=== PATIENT | male | born 1980 | race Caucasian/White ===

== ENCOUNTER 2021-02-19 17:20 | Emergency (ER) | payer SELFPAY ==
[2021-02-19] MEDS ORDERED: NORVASC 5 MG PO ONE (17:45)
[2021-02-19] MEDS ORDERED: Catapres 0.1 MG PO ONE (17:45)
[2021-02-19] MEDS ORDERED: Sodium Chloride 0.9% 1000 ML 1,000 ML IV SCH (17:45)
[2021-02-19] MEDS ORDERED: Sodium Chloride 0.9% 1000 ML 1,000 ML ONE (17:57)
[2021-02-19] MEDS ORDERED: Catapres 0.1 MG ONE (17:57)
[2021-02-19] MEDS ORDERED: NORVASC 5 MG ONE (17:57)
[2021-02-19 18:00] LABS: Absolute Neutrophil Ct (ANC) 5.69 (1.4-6.9); BASOPHIL % 0.5 % (0.0-0.4); Basophil (Absolute #) 0.05 (0-0.4); Eosinophil % 4.2 % (0.00-5.0); Eosinophil (Absolute #) 0.41 (0-0.5); Hemoglobin 15.8 gm/dl (12.5-18.0); Lymphocyte (Absolute #) 2.74 (1.0-4.6); Lymphocytes % 28.2 % (24.0-44.0); Mean Cell Volume 89.1 fl (78-100); Mean Corpuscular Hemoglobin 30.6 pg (26-32); Mean Corpuscular Hgb Concent. 34.3 g/dl (32-36); Mean Platelet Volume 9.2 fl (7.5-11.0); Monocyte (Absolute #) 0.84 (0.0-1.3); Monocytes % 8.6 % (0.0-12.0); Neutrophil % 58.5 % (36.0-66.0); Platelet Count 229 K/mm3 (150-450); Red Blood Count 5.16 M/mm3 (4.1-5.6); Red Cell Distribution Width 13.3 % (11.5-14.0); White Blood Count 9.7 K/mm3 (4.0-10.5)
[2021-02-19 18:08] LABS: ALBUMIN 4.5 g/dL (3.5-5.0); ALKALINE PHOSPHATASE 64 U/L (38-126); ANION GAP 10.4 MEQ/L (5-15); BLOOD UREA NITROGEN 15 mg/dL (9-20); CHLORIDE 103 mmol/L (98-107); Calcium 9.8 mg/dL (8.4-10.2); Carbon Dioxide 30 mmol/L (22-30); Creatinine 1 1.32 mg/dL (0.66-1.25); EST GLOMERULAR FILTRATION RATE > 60.0 ML/MIN; Glucose 105 mg/dL (74-106); Potassium 3.5 mmol/L (3.5-5.1); SGOT/AST 41 U/L (17-59); SGPT/ALT 58 U/L (0-50); SODIUM 140 mmol/L (137-145)
--- NOTE | 2021-02-19 19:15 | ERPHSYRPT ---
- History of Present Illness Time Seen by Provider: 02/19/21 17:30 Source: patient Exam Limitations: no limitations Patient Subjective Stated Complaint: HTN Triage Nursing Assessment: Patient ambulated back to ED and transferred self to bed. Patient A+O X3. Patient's skin pink, warm and dry. Patient complains of HTN. Patient states he went to donate blood yesterday and was denied due to high blood pressure !.) 151/114 2.) 171/107. Patient states he has an occasional headache all the time and has been getting sob easier. Patient currently denies pain or discomfort. Patient told his about high blood pressure and she wanted him to get checked out. Physician History: Patient is a 40-year-old male who went to give blood and was found to have a blood pressure 171/108 and his donation was refused. He does complain of some occasional headaches he is on no meds he denies any chest pain shortness of breath etc. his highest blood pressure recorded at 182/116. Timing/Duration: yesterday Activities at Onset: none Quality: throbbing Nitro Today/Relief: no nitro taken today Aspirin Treatment Today: no aspirin today Associated Symptoms: headaches Prior Chest Pain/Cardiac Workup: no prior cardiac workup Allergies/Adverse Reactions: iodine Allergy (Verified 02/19/21 17:27) shellfish derived Allergy (Verified 02/19/21 17:27) Hx Influenza Vaccination/Date Given: No Hx Pneumococcal Vaccination/Date Given: No Immunizations Up to Date: Yes Travel Risk - International Travel Have you traveled outside of the country in past 3 weeks: No - Coronavirus Screening Are you exhibiting any of the following symptoms?: No Close contact with a COVID-19 positive Pt in past 14-21 Days: No - Vaccine Status Have you recieved a Covid-19 vaccination: No - Review of Systems Constitutional: No Fever, No Chills Eyes: No Symptoms Ears, Nose, & Throat: No Symptoms Respiratory: No Cough, No Dyspnea Cardiac: No Chest Pain, No Edema, No Syncope Abdominal/Gastrointestinal: No Abdominal Pain, No Nausea, No Vomiting, No Diarrhea Genitourinary Symptoms: No Dysuria Musculoskeletal: No Back Pain, No Neck Pain Skin: No Rash Neurological: Headache, No Dizziness, No Focal Weakness, No Sensory Changes Psychological: No Symptoms Endocrine: No Symptoms All Other Systems: Reviewed and Negative - Past Medical History Pertinent Past Medical History: No Neurological History: No Pertinent History ENT History: No Pertinent History Cardiac History: No Pertinent History Respiratory History: No Pertinent History Endocrine Medical History: No Pertinent History Musculoskeletal History: No Pertinent History GI Medical History: No Pertinent History History: No Pertinent History Psycho-Social History: No Pertinent History Male Reproductive Disorders: No Pertinent History - Past Surgical History Past Surgical History: Yes Neuro Surgical History: No Pertinent History Cardiac: No Pertinent History Respiratory: No Pertinent History Gastrointestinal: No Pertinent History Genitourinary: No Pertinent History Musculoskeletal: No Pertinent History Male Surgical History: No Pertinent History - Social History Smoking Status: Never smoker Exposure to second hand smoke: No Drug Use: none Patient Lives Alone: No - Nursing Vital Signs Nursing Vital Signs: Initial Vital Signs Temperature 97.8 F 02/19/21 17:27 Pulse Rate 86 02/19/21 17:27 Respiratory Rate 18 02/19/21 17:27 Blood Pressure 182/116 02/19/21 17:27 O2 Sat by Pulse Oximetry 97 02/19/21 17:27 Pain Scale Pain Intensity 0 - Physical Exam General Appearance: mild distress, alert Eye Exam: PERRL/EOMI, eyes nml inspection Ears, Nose, Throat Exam: normal ENT inspection, moist mucous membranes Neck Exam: normal inspection, non-tender, supple Respiratory Exam: normal breath sounds, lungs clear, No respiratory distress Cardiovascular Exam: regular rate/rhythm, normal heart sounds, No edema Gastrointestinal/Abdomen Exam: soft, No tenderness, No mass Back Exam: normal inspection, No CVA tenderness, No vertebral tenderness Extremity Exam: normal inspection, normal range of motion Neurologic Exam: alert, oriented x 3, cooperative, normal mood/affect, nml cerebellar function, sensation nml, No motor deficits Skin Exam: normal color, warm, dry Lymphatic Exam: No adenopathy SpO2: 96 - Course Nursing assessment & vital signs reviewed: Yes EKG Interpreted by Me: RATE (74), Sinus Rhythm, NORMAL AXIS, NORMAL INTERVALS, NORMAL QRS - Radiology Exams Chest X-ray Interpretation: Interpreted by me, Negative Ordered Tests: Active Orders 24 hr Category Date Time Status EKG-ER Only STAT Care 02/19/21 17:45 Active IV Insertion STAT Care 02/19/21 17:45 Active CHEST 1 VIEW (PORTABLE) Stat Exams 02/19/21 17:46 Taken CBC W DIFF Stat Lab 02/19/21 17:54 Completed CMP Stat Lab 02/19/21 17:54 Completed TROPONIN Q3H Lab 02/19/21 17:54 Completed TROPONIN Q3H Lab 02/19/21 21:00 Ordered TROPONIN Q3H Lab 02/20/21 00:00 Ordered TROPONIN Q3H Lab 02/20/21 03:00 Ordered TROPONIN Q3H Lab 02/20/21 06:00 Ordered UA W/RFX UR CULTURE Stat Lab 02/19/21 17:47 Ordered Medication Summary Generic Name Dose Route Start Last Admin Trade Name Freq PRN Reason Stop Dose Admin Sodium Chloride 1,000 mls @ 50 mls/hr 02/19/21 17:45 02/19/21 18:01 Sodium Chloride 0.9% 1000 Ml IV 03/21/21 17:44 50 mls/hr .Q20H SHONDA Administration Discontinued Medications Generic Name Dose Route Start Last Admin Trade Name Freq PRN Reason Stop Dose Admin Amlodipine Besylate 10 mg 02/19/21 17:45 02/19/21 18:00 Norvasc 5 Mg PO 02/19/21 17:46 10 mg STAT ONE Administration Amlodipine Besylate Confirm 02/19/21 17:57 Norvasc 5 Mg Administered 02/19/21 17:58 Dose 10 mg .ROUTE .STK-MED ONE Clonidine 0.1 mg 02/19/21 17:45 02/19/21 18:00 Catapres 0.1 Mg PO 02/19/21 17:46 0.1 mg STAT ONE Administration Clonidine Confirm 02/19/21 17:57 Catapres 0.1 Mg Administered 02/19/21 17:58 Dose 0.1 mg .ROUTE .STK-MED ONE Lab/Rad Data: Laboratory Result Diagrams 02/19/21 17:54 02/19/21 17:54 Laboratory Results 02/19/21 02/19/21 02/19/21 Range/Units 17:54 17:54 17:54 WBC 9.7 (4.0-10.5) K/mm3 RBC 5.16 (4.1-5.6) M/mm3 Hgb 15.8 (12.5-18.0) gm/dl Hct 46.0 (42-50) % MCV 89.1 (78-100) fl MCH 30.6 (26-32) pg MCHC 34.3 (32-36) g/dl RDW 13.3 (11.5-14.0) % Plt Count 229 (150-450) K/mm3 MPV 9.2 (7.5-11.0) fl Gran % 58.5 (36.0-66.0) % Eos # (Auto) 0.41 (0-0.5) Absolute Lymphs (auto) 2.74 (1.0-4.6) Absolute Monos (auto) 0.84 (0.0-1.3) Lymphocytes % 28.2 (24.0-44.0) % Monocytes % 8.6 (0.0-12.0) % Eosinophils % 4.2 (0.00-5.0) % Basophils % 0.5 (0.0-0.4) % Absolute Granulocytes 5.69 (1.4-6.9) Basophils # 0.05 (0-0.4) Sodium 140 (137-145) mmol/L Potassium 3.5 (3.5-5.1) mmol/L Chloride 103 (98-107) mmol/L Carbon Dioxide 30 (22-30) mmol/L Anion Gap 10.4 (5-15) MEQ/L BUN 15 (9-20) mg/dL Creatinine 1.32 H (0.66-1.25) mg/dL Estimated GFR > 60.0 ML/MIN Glucose 105 (74-106) mg/dL Calcium 9.8 (8.4-10.2) mg/dL Total Bilirubin 0.50 (0.2-1.3) mg/dL AST 41 (17-59) U/L ALT 58 H (0-50) U/L Alkaline Phosphatase 64 (38-126) U/L Troponin I < 0.012 (0.000-0.034) ng/mL Serum Total Protein 8.0 (6.3-8.2) g/dL Albumin 4.5 (3.5-5.0) g/dL - Progress Progress: improved Air Movement: good Blood Culture(s) Obtained: No Antibiotics given: No - Departure Departure Disposition: Home Clinical Impression: Hypertension Condition: Stable Critical Care Time: No Referrals: ETHAN BURT [Primary Care Provider] - Instructions: Controlling Your Blood Pressure Through Lifestyle, High Blood Pressure (DC) Prescriptions: Amlodipine Besylate/Benazepril [Amlodipine-Benazepril 10-20 mg] 1 each PO DAILY 30 Days #30 capsule
[2021-02-19 19:30] VITALS: BP 160/85; PULSE 76; O2SAT 97
--- NOTE | 2021-02-20 08:39 | XRAY ---
Exam: AP portable chest film from 02/19/2021. Comparison: None. Indication: Elevated blood pressure. Findings: The heart size and contour are normal. The twyla and mediastinal structures appear unremarkable. There is average inflation of the lung castaneda. I see no air space infiltrates, vascular congestion, pneumothorax, or pleural effusion. I cannot exclude a tiny calcified granuloma within the peripheral right upper lung field. There is also either a small vessel on end or a second tiny calcified granuloma within the peripheral left lower lung field. Mild lower thoracic vertebral endplate spurring is evident. Impression: 1. No acute cardiopulmonary process is seen.
== END 2021-02-19 19:30 | disposition home or self-care (01) ==
LOC: ED 17:20
DX: I10 Essential (primary) hypertension (principal)
CPT/HCPCS: 36000; 36415; 71045; 80053; 84484; 85025; 93005; 99284; A9270-GY

== ENCOUNTER 2021-08-13 04:39 | Emergency (ER) | payer SELFPAY ==
[2021-08-13] MEDS ORDERED: BABY ASPIRIN 81 MG CHEW PO ONE (05:02)
[2021-08-13 05:18] LABS: Absolute Neutrophil Ct (ANC) 4.37 (1.4-6.9); BASOPHIL % 0.2 % (0.0-0.4); Basophil (Absolute #) 0.02 (0-0.4); Eosinophil (Absolute #) 0.33 (0-0.5); Hemoglobin 14.4 gm/dl (12.5-18.0); Lymphocyte (Absolute #) 2.78 (1.0-4.6); Lymphocytes % 33.7 % (24.0-44.0); Mean Cell Volume 92.1 fl (78-100); Mean Corpuscular Hemoglobin 30.8 pg (26-32); Mean Corpuscular Hgb Concent. 33.5 g/dl (32-36); Mean Platelet Volume 9.2 fl (7.5-11.0); Monocyte (Absolute #) 0.75 (0.0-1.3); Monocytes % 9.1 % (0.0-12.0); Platelet Count 211 K/mm3 (150-450); Red Blood Count 4.67 M/mm3 (4.1-5.6); White Blood Count 8.3 K/mm3 (4.0-10.5)
[2021-08-13 05:39] LABS: ALBUMIN 4.4 g/dL (3.5-5.0); ALKALINE PHOSPHATASE 69 U/L (38-126); ANION GAP 14.7 MEQ/L (5-15); BLOOD UREA NITROGEN 17 mg/dL (9-20); CHLORIDE 105 mmol/L (98-107); Calcium 9.3 mg/dL (8.4-10.2); Carbon Dioxide 24 mmol/L (22-30); Creatinine 1 1.07 mg/dL (0.66-1.25); EST GLOMERULAR FILTRATION RATE > 60.0 ML/MIN; Glucose 103 mg/dL (74-106); NT PRO BNP 16.6 pg/mL (0-450); Potassium 3.6 mmol/L (3.5-5.1); SGOT/AST 43 U/L (17-59); SGPT/ALT 76 U/L (0-50); SODIUM 141 mmol/L (137-145); Total Protein 7.6 g/dL (6.3-8.2)
[2021-08-13 06:14] VITALS: BP 140/94; PULSE 72; O2SAT 95
--- NOTE | 2021-08-13 06:38 | ERPHSYRPT ---
- History of Present Illness Time Seen by Provider: 08/13/21 04:53 Source: patient Exam Limitations: no limitations Patient Subjective Stated Complaint: "I'm waking up and my arm hurts." Triage Nursing Assessment: Reported right arm pain onset 1 week ago. Only occurs when he awakes after sleepingl. Denied sleeping on the right side of his body. D escribed as tingling with "muscular pain" in the elbow and radiating to the shoulder. Denied associated symptoms. reported difficult to control hypertension. 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 Denied pain at this time. Symmetrical chest expansion. Heart tones S1/S2 RRR without extra sounds. Lungs vesicular throughout all castaneda without adventitious sounds. Abdomen non-distended, non-surgical, and without peritoneal signs. Peripheral pulses +3 bilateral. No dependent edema. Physician History: 40 years old male with history of poorly controlled hypertension, hyperlipidemia presented in the ER with chief complaint right forearm/elbow pain for almost 1 week. Patient reports pain in the right upper extremity upon waking up and improves with movements of arm and some tingling sensations at times. No radiation to the chest or chest pain. Denies any difficulty breathing. No weakness in right upper extremity. Denies any fall or trauma. No history of CAD or cardiac work-up done in the past. Timing/Duration: week(s) (1), intermittent, improved Severity: moderate Modifying Factors: Improves With: movement Associated Symptoms: denies symptoms Allergies/Adverse Reactions: iodine Allergy (Verified 08/13/21 04:45) shellfish derived Allergy (Verified 08/13/21 04:45) Home Medications: Amlodipine Besylate/Benazepril [Amlodipine-Benazepril 10-20 mg] 10 mg PO DAILY 08/13/21 [History] Atorvastatin Calcium 10 mg PO DAILY 08/13/21 [History] Losartan Potassium 100 mg PO DAILY 08/13/21 [History] Hx Tetanus, Diphtheria Vaccination/Date Given: No Hx Influenza Vaccination/Date Given: No Hx Pneumococcal Vaccination/Date Given: No Travel Risk - International Travel Have you traveled outside of the country in past 3 weeks: No - Coronavirus Screening Close contact with a COVID-19 positive Pt in past 14-21 Days: No - Vaccine Status Have you recieved a Covid-19 vaccination: No - Review of Systems Constitutional: No Symptoms Eyes: No Symptoms Ears, Nose, & Throat: No Symptoms Respiratory: No Symptoms Cardiac: No Symptoms Abdominal/Gastrointestinal: No Symptoms Genitourinary Symptoms: No Symptoms Musculoskeletal: Myalgias Skin: No Symptoms Psychological: No Symptoms Endocrine: No Symptoms Hematologic/Lymphatic: No Symptoms Immunological/Allergic: No Symptoms - Past Medical History Pertinent Past Medical History: No Neurological History: No Pertinent History ENT History: No Pertinent History Cardiac History: Hypertension Respiratory History: No Pertinent History Endocrine Medical History: No Pertinent History Musculoskeletal History: No Pertinent History GI Medical History: No Pertinent History History: No Pertinent History Psycho-Social History: No Pertinent History Male Reproductive Disorders: No Pertinent History - Past Surgical History Past Surgical History: Yes Neuro Surgical History: No Pertinent History Cardiac: No Pertinent History Respiratory: No Pertinent History Gastrointestinal: No Pertinent History Genitourinary: No Pertinent History Musculoskeletal: Orthopedic Surgery Male Surgical History: No Pertinent History - Social History Smoking Status: Never smoker Exposure to second hand smoke: No Drug Use: none Patient Lives Alone: Yes - Nursing Vital Signs Nursing Vital Signs: Initial Vital Signs Pulse Rate 78 08/13/21 04:40 Respiratory Rate 16 08/13/21 04:40 Blood Pressure 171/108 08/13/21 04:40 O2 Sat by Pulse Oximetry 98 08/13/21 04:40 Pain Scale Pain Intensity 0 - Physical Exam General Appearance: no apparent distress, alert, anxiety Eye Exam: PERRL/EOMI, eyes nml inspection Ears, Nose, Throat Exam: normal ENT inspection, TMs normal, pharynx normal Neck Exam: normal inspection, supple, full range of motion Respiratory Exam: normal breath sounds, lungs clear, No chest tenderness Cardiovascular Exam: regular rate/rhythm, normal heart sounds Gastrointestinal/Abdomen Exam: soft, normal bowel sounds, No tenderness Back Exam: normal inspection, normal range of motion Extremity Exam: normal inspection, normal range of motion, pelvis stable Neurologic Exam: alert, oriented x 3, cooperative, crystal lapper II-XII nml as tested, nml station & gait, sensation nml, No motor deficits Skin Exam: normal color SpO2 Interpretation: normal SpO2: 95 O2 Delivery: Room Air - Course EKG Interpreted by Me: RATE (75), Sinus Rhythm, NORMAL AXIS, NORMAL INTERVALS, NORMAL QRS Ordered Tests: Active Orders 24 hr Category Date Time Status Web User Experience Strategist STAT Care 08/13/21 05:04 Active EKG-ER Only STAT Care 08/13/21 05:04 Active IV Insertion STAT Care 08/13/21 05:04 Active CHEST 1 VIEW (PORTABLE) Stat Exams 08/13/21 05:03 Ordered CBC W DIFF Stat Lab 08/13/21 05:02 Completed CMP Stat Lab 08/13/21 05:02 Completed NT PRO BNP Stat Lab 08/13/21 05:02 Completed TROPONIN Q3H Lab 08/13/21 05:15 Completed TROPONIN Q3H Lab 08/13/21 08:15 Ordered TROPONIN Q3H Lab 08/13/21 11:15 Ordered TROPONIN Q3H Lab 08/13/21 14:15 Ordered TROPONIN Q3H Lab 08/13/21 17:15 Ordered TROPONIN Q3H Lab 08/13/21 20:15 Ordered TROPONIN Q3H Lab 08/13/21 23:15 Ordered Medication Summary Discontinued Medications Generic Name Dose Route Start Last Admin Trade Name Freq PRN Reason Stop Dose Admin Aspirin 324 mg 08/13/21 05:02 08/13/21 05:07 Aspirin 81 Mg Tab.Chew PO 08/13/21 05:03 324 mg STAT ONE Administration Lab/Rad Data: Laboratory Result Diagrams 08/13/21 05:02 08/13/21 05:02 Laboratory Results 08/13/21 08/13/21 08/13/21 Range/Units 05:15 05:02 05:02 WBC 8.3 (4.0-10.5) K/mm3 RBC 4.67 (4.1-5.6) M/mm3 Hgb 14.4 (12.5-18.0) gm/dl Hct 43.0 (42-50) % MCV 92.1 (78-100) fl MCH 30.8 (26-32) pg MCHC 33.5 (32-36) g/dl RDW 13.0 (11.5-14.0) % Plt Count 211 (150-450) K/mm3 MPV 9.2 (7.5-11.0) fl Gran % 53.0 (36.0-66.0) % Eos # (Auto) 0.33 (0-0.5) Absolute Lymphs (auto) 2.78 (1.0-4.6) Absolute Monos (auto) 0.75 (0.0-1.3) Lymphocytes % 33.7 (24.0-44.0) % Monocytes % 9.1 (0.0-12.0) % Eosinophils % 4.0 (0.00-5.0) % Basophils % 0.2 (0.0-0.4) % Absolute Granulocytes 4.37 (1.4-6.9) Basophils # 0.02 (0-0.4) Sodium 141 (137-145) mmol/L Potassium 3.6 (3.5-5.1) mmol/L Chloride 105 (98-107) mmol/L Carbon Dioxide 24 (22-30) mmol/L Anion Gap 14.7 (5-15) MEQ/L BUN 17 (9-20) mg/dL Creatinine 1.07 (0.66-1.25) mg/dL Estimated GFR > 60.0 ML/MIN Glucose 103 (74-106) mg/dL Calcium 9.3 (8.4-10.2) mg/dL Total Bilirubin 0.40 (0.2-1.3) mg/dL AST 43 (17-59) U/L ALT 76 H (0-50) U/L Alkaline Phosphatase 69 (38-126) U/L Troponin I < 0.012 (0.000-0.034) ng/mL NT-Pro-B Natriuret Pep 16.6 (0-450) pg/mL Serum Total Protein 7.6 (6.3-8.2) g/dL Albumin 4.4 (3.5-5.0) g/dL - Progress Progress: improved Progress Note: 08/13/21 06:37 40 years old is evaluated for right upper extremity pain upon waking up for almost 1 week. Pain is resolved prior to arrival in the ER. Patient remained asymptomatic throughout her stay in the ER. EKG showed normal sinus rhythm without any ischemic changes. Negative troponins. Chest x-ray negative for any acute cardiopulmonary findings reviewed by me, official report is pending. This could be musculoskeletal probably. With his history of hypertension and hyperlipidemia I recommended outpatient cardiology follow-up. Discussed signs symptoms of worsening needing return to ER which he seems understanding. Do not think he needs any other work-up and is stable for discharge. Counseled pt/family regarding: lab results, diagnosis, need for follow-up, rad results - Departure Departure Disposition: Home Clinical Impression: Right upper limb pain Condition: Stable Critical Care Time: No Referrals: BURT,ETHAN, HEALTHCARE MANAGEMENT CONSULTANT [Primary Care Provider] - (Call tomorrow for reevaluation) CHANTE KEBEDE [ACTIVE STAFF] - (Call tomorrow for reevaluation) Instructions: Chest Pain Additional Instructions: Take Tylenol as needed for pain. Monitor your blood pressure regularly, keep a log and follow-up with PCP to see if it needs her chest ER blood pressure meds. Follow-up with cardiology for reevaluation. Return to ER for any worsening arm pain or if radiates to the chest Or having any shortness of breath/palpitations etc.
--- NOTE | 2021-08-13 07:41 | XRAY ---
Indication: Arm and shoulder pain. Comparison: February 19, 2021. Portable apical lordotic chest again demonstrates normal heart and lungs. Bony thorax intact. No new/acute findings.
== END 2021-08-13 06:54 | disposition home or self-care (01) ==
LOC: ED 04:39
DX: M79.601 Pain in right arm (principal)
CPT/HCPCS: 36000; 36415; 71045; 80053; 83880; 84484; 85025; 93005; 93041; 99284; A9270-GY

== ENCOUNTER 2023-02-25 07:50 | Emergency (ER) | payer SELFPAY ==
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
[2023-02-25 08:37] LABS: Absolute Neutrophil Ct (ANC) 5.55 x10^3/uL (1.4-6.9); BASOPHIL % 0.7 % (0.0-0.4); Basophil (Absolute #) 0.05 x10^3/uL (0-0.4); Eosinophil (Absolute #) 0.08 x10^3/uL (0-0.5); Hematocrit 45.8 % (42-50); Hemoglobin 15.5 g/dL (12.5-18.0); IMMATURE GRAN # 0.02 x10^3u/L (0.00-0.03); IMMATURE GRAN % 0.3 % (0.00-0.4); Lymphocyte (Absolute #) 1.48 x10^3/uL (1.0-4.6); Lymphocytes % 19.2 % (24.0-44.0); Mean Cell Volume 88.4 fL (78-100); Mean Corpuscular Hemoglobin 29.9 pg (26-32); Mean Corpuscular Hgb Concent. 33.8 g/dL (32-36); Mean Platelet Volume 8.8 fL (7.5-11.0); Monocyte (Absolute #) 0.51 x10^3/uL (0.0-1.3); Monocytes % 6.6 % (0.0-12.0); Neutrophil % 72.2 % (36.0-66.0); Platelet Count 219 x10^3/uL (150-450); Red Blood Count 5.18 x10^6/uL (4.1-5.6); Red Cell Distribution Width 12.3 % (11.5-14.0); White Blood Count 7.7 x10^3/uL (4.0-10.5)
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
[2023-02-25 08:55] LABS: ALBUMIN 4.6 g/dL (3.5-5.0); ALKALINE PHOSPHATASE 78 U/L (38-126); ANION GAP 13.7 MEQ/L (5-15); BLOOD UREA NITROGEN 11 mg/dL (9-20); CHLORIDE 104 mmol/L (98-107); Carbon Dioxide 27 mmol/L (22-30); Cholesterol 235 mg/dL (50-200); EST GLOMERULAR FILTRATION RATE > 60.0 ML/MIN; ETHYL ALCOHOL < 10 mg/dL (0-10); Glucose 115 mg/dL (74-106); HDL CHOLESTEROL 36 mg/dL (40-60); LDL, DIRECT 139 mg/dL (30-100); Potassium 3.7 mmol/L (3.5-5.1); Risk Ratio 6.6; SGOT/AST 32 U/L (17-59); SGPT/ALT 39 U/L (0-50); SODIUM 141 mmol/L (137-145); TRIGLYCERIDE 339 mg/dL (30-150); Total Protein 8.5 g/dL (6.3-8.2)
[2023-02-25 08:55] LABS: Appearance Clear (Clear); Bacteria None Seen /HPF (None Seen); Bilirubin Negative (Negative); Blood Negative (Negative); Epithelial Cells None Seen /HPF (None Seen); Glucose, Urine Negative (Negative); Hyaline Casts NONE SEEN /LPF (0-2); Ketones Negative (Negative); Leukocyte Esterase Negative (Negative); Nitrite Negative (Negative); Protein,Urine Dip Negative (Negative); RBC 0-2 /HPF (0-5); Specific Gravity 1.015 (1.005-1.030); Urobilinogen 0.2 mg/dL (0.2); WBC 0-2 /HPF (0-5)
[2023-02-25 09:03] LABS: ADD URINE CULTURE? NO (NO)
[2023-02-25 09:04] LABS: Amphetamine,Urine NEGATIVE (NEGATIVE); Barbiturate,Urine NEGATIVE (NEGATIVE); Benzodiazepine,Urine NEGATIVE (NEGATIVE); Cocaine,Urine NEGATIVE (NEGATIVE); Methadone,Urine NEGATIVE (NEGATIVE); Opiate,Urine NEGATIVE (NEGATIVE); PCP,Urine NEGATIVE (NEGATIVE); THC,Urine NEGATIVE (NEGATIVE)
[2023-02-25 09:43] VITALS: O2SAT 97
[2023-02-25 10:28] VITALS: BP 150/90; PULSE 80
== END 2023-02-25 10:30 | disposition home or self-care (01) ==
LOC: ED 07:50
DX: R55 Syncope and collapse (principal); I10 Essential (primary) hypertension; Z79.899 Other long term (current) drug therapy; Z28.310 Unvaccinated for COVID-19
CPT/HCPCS: 36000; 36415; 70450; 80053; 80061; 80307; 81001; 82077; 83721; 84484; 85025; 93005; 94760; 99285

== ENCOUNTER 2024-12-08 17:44 | Emergency (ER) | payer BC ==
--- NOTE | 2024-12-08 18:05 | ERPHSYRPT ---
- History of Present Illness Time Seen by Provider: 12/08/24 17:58 Source: patient Exam Limitations: no limitations Physician History: 44-year-old male with a pacemaker presents to our ED for evaluation. Patient reports his thought it looked a little swollen. Patient denies pain. No trauma no fever no signs of infection patient asymptomatic. Patient reports the pacemaker was working normally as per his home assessment. Patient otherwise asymptomatic. He voices no complaints or concerns at this time. Portions of this note were created with voice recognition technology. There may be grammatical, spelling, punctuation or sound alike errors Timing/Duration: today Severity: mild Modifying Factors: Improves With: nothing Associated Symptoms: denies symptoms Allergies/Adverse Reactions: iodine Allergy (Verified 12/08/24 17:52) shellfish derived Allergy (Verified 12/08/24 17:52) Home Medications: Amlodipine Besylate/Benazepril [Amlodipine-Benazepril 10-20 mg] 10 mg PO DAILY 08/13/21 [History] Losartan Potassium 100 mg PO DAILY 08/13/21 [History] Hx Tetanus, Diphtheria Vaccination/Date Given: No Hx Influenza Vaccination/Date Given: No Hx Pneumococcal Vaccination/Date Given: No - Review of Systems Constitutional: No Symptoms, No Fever, No Chills Eyes: No Symptoms Ears, Nose, & Throat: No Symptoms Respiratory: No Symptoms, No Cough, No Dyspnea Cardiac: No Symptoms, No Chest Pain, No Edema, No Syncope Abdominal/Gastrointestinal: No Symptoms, No Abdominal Pain, No Nausea, No Vomiting, No Diarrhea Genitourinary Symptoms: No Symptoms, No Dysuria Musculoskeletal: No Symptoms, No Back Pain, No Neck Pain Skin: No Symptoms, No Rash Neurological: No Symptoms, No Dizziness, No Focal Weakness, No Sensory Changes Psychological: No Symptoms Endocrine: No Symptoms Hematologic/Lymphatic: No Symptoms Immunological/Allergic: No Symptoms All Other Systems: Reviewed and Negative - Past Medical History Pertinent Past Medical History: No Neurological History: No Pertinent History ENT History: No Pertinent History Cardiac History: Hypertension Respiratory History: No Pertinent History Endocrine Medical History: No Pertinent History Musculoskeletal History: No Pertinent History GI Medical History: No Pertinent History History: No Pertinent History Psycho-Social History: No Pertinent History Male Reproductive Disorders: No Pertinent History - Past Surgical History Past Surgical History: Yes Neuro Surgical History: No Pertinent History Cardiac: No Pertinent History Respiratory: No Pertinent History Gastrointestinal: No Pertinent History Genitourinary: No Pertinent History Musculoskeletal: Orthopedic Surgery Male Surgical History: No Pertinent History - Social History Smoking Status: Never smoker Exposure to second hand smoke: No Drug Use: none Patient Lives Alone: Yes - Physical Exam General Appearance: no apparent distress, alert Eye Exam: PERRL/EOMI, eyes nml inspection Ears, Nose, Throat Exam: normal ENT inspection, moist mucous membranes Neck Exam: normal inspection, full range of motion Respiratory Exam: normal breath sounds, lungs clear, airway intact, No respiratory distress Cardiovascular Exam: regular rate/rhythm, normal peripheral pulses Gastrointestinal/Abdomen Exam: soft, normal bowel sounds, No tenderness, No mass Back Exam: normal inspection, normal range of motion, No CVA tenderness, No vertebral tenderness Extremity Exam: normal inspection, normal range of motion, pelvis stable Neurologic Exam: alert, oriented x 3, cooperative, normal mood/affect, sensation nml, No motor deficits Skin Exam: normal color, warm, dry, other (Soft tissue superficial to the pacemaker is intact. No signs of infection. No fluctuance. No cellulitis. No open or draining lesions.), No rash Lymphatic Exam: No adenopathy SpO2 Interpretation: normal O2 Delivery: Room Air - Course Nursing assessment & vital signs reviewed: Yes - Progress Progress: improved Progress Note: 44-year-old male presents to our ED for evaluation of soft tissue superficial to pacemaker. The soft tissue superficial to pacemaker appears to be intact no signs of infection patient asymptomatic. 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 Will discharge home. Patient voices no other complaints or concerns at this time. Portions of this note were created with voice recognition technology. There may be grammatical, spelling, punctuation or sound alike errors Complexity of problem addresses moderate acute complicated no critical care time. Complex of data reviewed and analyzed is none. No specialized testing ordered. Diagnosis made based on history and physical exam. Risk of complication and or risk of morbidity/mortality of patient management is low. V ital stable. Time spent to discharge patient is approximately 5 minutes. Plan of care established for shared decision making. No social determinants of health present to impede follow-up. Portions of this note were created with voice recognition technology. There may be grammatical, spelling, punctuation or sound alike errors 12/08/24 18:06 Counseled pt/family regarding: diagnosis, need for follow-up - Departure Departure Disposition: Home Clinical Impression: Skin abnormality Condition: Stable Critical Care Time: No Referrals: CRSITEL PECK MD [Primary Care Provider] - Follow up/PCP as directed Additional Instructions: Discharge/Care Plan INDER PINEDO was seen on 12/08/24 in the Emergency Room. The patient was counseled regarding Diagnosis,Lab results, Imaging studies, need for follow up and when to return to the Emergency Room. Prescriptions given: Discharge Note I have spoken with the patient and/or caregivers. I have explained the patient's condition, diagnosis and treatment plan based on the information available to me at this time. I have answered the patient's and/or caregiver's questions and addressed any concerns. The patient and/or caregivers have as good understanding of the patient's diagnosis, condition and treatment plan as can be expected at this point. The vital signs have been stable. The patient's condition is stable and appropriate for discharge from the emergency department. The patient will pursue further outpatient evaluation with the primary care physician or other designated or consulting physician as outlined in the discharge instructions. The patient and/or caregivers are agreeable to this plan of care and follow-up instructions have been explained in detail. The patient and/or caregivers have received these instruction. The patient/and or caregivers are aware that any significant change in condition or worsening of symptoms should prompt an immediate return to this or the closest emergency department or call 911.
[2024-12-08 18:09] VITALS: TEMP 98.1
[2024-12-08 18:10] VITALS: BP 135/86; O2SAT 98
[2024-12-08 18:18] VITALS: PULSE 68; RESP 18
== END 2024-12-08 18:16 | disposition home or self-care (01) ==
LOC: ED 17:44
DX: R23.9 Unspecified skin changes (principal); Z95.0 Presence of cardiac pacemaker; I10 Essential (primary) hypertension; Z79.899 Other long term (current) drug therapy
CPT/HCPCS: 99281